=== PATIENT | male | born 2000 | race African-American/Black ===

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

== ENCOUNTER 2023-12-05 03:10 | Emergency (ER) | payer SELFPAY ==
[2023-12-05 06:04] LABS: Influenza A by NAA Not Detected (NotDetected); Influenza B by NAA Not Detected (NotDetected); SARS-CoV-2 NAA Rapid Test Not Detected (NotDetected)
== END 2023-12-05 06:12 | disposition home or self-care (01) ==
LOC: ERS 03:10
DX: B34.9 Viral infection, unspecified (principal)
CPT/HCPCS: 71045